=== PATIENT | female | born 1960 | race Caucasian/White ===

== ENCOUNTER 2021-09-15 10:42 | Emergency (ER) | payer BC ==
[2021-09-15] MEDS ORDERED: SOTROVIMAB 500 MG in SODIUM CHLORIDE 100 ML IVPB ONE (11:03)
[2021-09-15 11:08] VITALS: BP 133/66; PULSE 84; TEMP 99.4; BMI 34.2
== END 2021-09-15 15:05 | disposition home or self-care (01) ==
LOC: JCOVINFU 10:42
DX: U07.1 COVID-19 (principal)
CPT/HCPCS: 99284-25; M0247; Q0247